=== PATIENT | female | born 1945 | race Caucasian/White ===

== ENCOUNTER 2017-10-15 07:28 | Inpatient (IN) | payer MEDICARE, OTHER ==
[2017-10-12 11:54] LABS: BASOPHILS # (AUTO) 0.1 (0.0-0.1); BASOPHILS % 0.6 % (0.0-1.0); EOSINOPHILS # (AUTO) 0.1 (0.0-0.4); EOSINOPHILS % 1.6 % (0.0-6.0); HEMATOCRIT 38.2 % (34.2-44.1); HEMOGLOBIN 12.8 g/dL (12.0-16.0); LYMPHOCYTES # (AUTO) 2.8 (1.0-3.2); LYMPHOCYTES % 32.6 % (18.0-39.1); MEAN CORPUSCULAR HEMOGLOBIN 31.2 pg (28-32); MEAN CORPUSCULAR HGB CONC 33.5 g/dL (31-35); MEAN CORPUSCULAR VOLUME 93.2 fL (81-99); MONOCYTES # (AUTO) 0.7 (0.2-0.8); MONOCYTES % 7.9 % (4.4-11.3); NEUTROPHILS % 57.1 % (38.7-80.0); PLATELET COUNT 432 x10e3/uL (140-360); RED CELL DISTRIBUTION WIDTH 12.2 % (11.7-14.4)
[2017-10-12 12:22] LABS: BLOOD UREA NITROGEN 18 mg/dL (7-26); BUN/CREATININE RATIO 24 (6-25); CALCIUM 10.2 mg/dL (8.4-10.2); CARBON DIOXIDE 30 mmol/L (22-29); CHLORIDE 102 mmol/L (98-107); CREATININE, SERUM 0.74 mg/dL (0.57-1.11); EST GLOMERULAR FILTRATION RATE > 60 ML/MIN (60-); GLUCOSE 101 mg/dL (74-118); SODIUM 140 mmol/L (136-145)
--- NOTE | 2017-10-12 12:36 | Diagnostic Imaging Report ---
PROCEDURE: X-RAY CHEST, TWO VIEWS COMPARISON: None. INDICATIONS: PRE-OPERATIVE CHEST X-RAY FOR LT. KNEE SURGERY. FINDINGS: LUNGS: There is flattening of the diaphragms. No evidence of mass or infiltrate. Vasculature is normal PLEURA: No effusions or pneumothorax. HEART \T\ MEDIASTINUM: The heart is within normal size-limits. Aorta is ectatic. BONES \T\ SOFT TISSUES: Diffusely demineralized. Lymph node dissection clips are present in the right axilla. CONCLUSION: Mild pulmonary hyperinflation suggestive of small airways disease. No acute thoracic abnormality. Dictated by: Reid Peoples M.D. on 10/12/2017 at 12:39 Electronically approved by: Reid Peoples M.D. on 10/12/2017 at 12:39
[~2017-10-15] VITALS: Ht 165.1 cm; Wt 95.3 kg
[~2017-10-15 07:28] MED LIST: ASPIRIN81 MG; BACITRACIN 50,000 UNIT VIAL ONE; DIOVAN HCT 80-1 EACH; FISH OIL 1,0001 EAC2; GABAPENTIN300 MG PO; LIPITOR20 MG; METOPROLOL TART50 MG PO; MUPIROCIN 2% OINT 22 GM TUBE ONE; ROPIVACAINE 246.25 MG, EPINEPHRINE HCL 1:1000 0.5 MG, CLONIDINE HCL 0.08 MG, KETOROLAC ... IV ONE; TRANEXAMIC ACID 1,000 MG/10 ML ML ONE
--- OUTSIDE RECORDS SUMMARY | 2017-10-15 07:31 | XMS REPORT ---
Author Author [facility] Address Unknown Phone Unavailable Care Team Providers Care Funeral Planning Counselor Name Role Phone OLGA ROJAS Unavailable Unavailable Problems This patient has no known problems. Allergies, Adverse Reactions, Alerts This patient has no known allergies or adverse reactions. Medications This patient has no known medications. Results Test Description Test Time Test Comments Text Results Atomic Results Result Comments CHEST 2 VIEWS [place] [address] Patient Name: YINA RINALDI MR #: [id number] : 1945 Age/Sex: 72/F Req # : [id number] Adm Physician: Ordered by: ASHLEY MONTERO MD Report #: [id number] Location: OR Room/Bed: Procedure: DX/CHEST 2 VIEWS Exam Date: 10/12/17 Exam Time: 1212 REPORT STATUS: Signed PROCEDURE: X-RAY CHEST, TWO VIEWS COMPARISON: None. INDICATIONS: PRE-OPERATIVE CHEST X-RAY FOR LT. KNEE SURGERY. FINDINGS: LUNGS: There is flattening of the diaphragms. No evidence of mass or infiltrate. Vasculature is normal PLEURA: No effusions or pneumothorax. HEART T MEDIASTINUM: The heart is within normal size-limits. Aorta is ectatic. BONES T SOFT TISSUES: Diffusely demineralized. Lymph node dissection clips are present in the right axilla. CONCLUSION: Mild pulmonary hyperinflation suggestive of small airways disease. No acute thoracic abnormality. Dictated by : Noe Peoples M.D. on 10/12/2017 at 12:39 Electronically approved by : Noe Peoples M.D. on 10/12/2017 at 12:39 Dictated By: NOE PEOPLES MD [id number] COPY TO: ASHLEY MONTERO MD
[2017-10-15] MEDS ORDERED: CELECOXIB 200 MG CAP ONE (07:35)
[2017-10-15] MEDS ORDERED: GABAPENTIN 300 MG CAP ONE (07:35)
[2017-10-15] MEDS ORDERED: DEXAMETHASONE SOD PHOS 10 MG/1 ML VIAL ONE (07:35)
[2017-10-15] MEDS ORDERED: CEFAZOLIN SOD 2 GM/D5W 50ML 50 ML IV ONE (07:35)
[2017-10-15] MEDS ORDERED: ZOLPIDEM TARTRATE 5 MG TAB PO PRN (10:00)
[2017-10-15] MEDS ORDERED: KETOROLAC TROMETHAMINE 30 MG/ML VIAL IV PRN (10:00)
[2017-10-15] MEDS ORDERED: ACETAMINOPHEN 650 MG SUPP PR PRN (10:00)
[2017-10-15] MEDS ORDERED: ONDANSETRON HCL INJ 2 MG/ML VIAL IV PRN (10:00)
[2017-10-15] MEDS ORDERED: DOCUSATE SODIUM 100 MG CAP PO PRN (10:00)
[2017-10-15] MEDS ORDERED: PROMETHAZINE HCL (IM) 25 MG/ML VIAL INJ PRN (10:00)
[2017-10-15] MEDS ORDERED: HYDROCODONE/APAP 5MG-325MG TAB PO PRN (10:00)
[2017-10-15] MEDS ORDERED: DIPHENHYDRAMINE HCL INJ 50 MG/ML VIAL IM/IV PRN (10:00)
[2017-10-15] MEDS ORDERED: KETOROLAC TROMETHAMINE 30 MG/ML VIAL ONE ×2 (10:21→18:12)
--- NOTE | 2017-10-15 11:03 | Diagnostic Imaging Report ---
PROCEDURE:KNEE LEFT 1-2 VIEWS TECHNIQUE:Portable AP and crosstable lateral views left knee INDICATION:Postoperative evaluation COMPARISON:None. FINDINGS: See conclusion. CONCLUSION: 1. Total left knee arthroplasty intact and in anatomic alignment. 2. Expected regional postsurgical sequela including soft tissue fluid, gas and overlying soft tissue surgical jaylene with soft tissue swelling. 3. No acute abnormality. Dictated by: Sher Ba M.D. on 10/15/2017 at 11:06 Electronically approved by: Sher Ba M.D. on 10/15/2017 at 11:06
[2017-10-15] MEDS: ACETAMINOPHEN 1000 MG/100 ML IV SCH ×2 (11:54→17:16)
[2017-10-15] MEDS: SODIUM CHLORIDE 0.9% 1000ML 1,000 ML IV SCH ×2 (11:54→19:49)
[2017-10-15 12:00] VITALS: BP 102/52
[2017-10-15] MEDS ORDERED: CEFAZOLIN SOD 1 GM/NS 50ML 50 ML IV SCH (14:00)
[2017-10-15] MEDS: CEFAZOLIN SOD 1 GM VIAL IV SCH ×2 (14:43→21:05)
--- NOTE | 2017-10-15 15:28 | Operative Report ---
DATE OF PROCEDURE: October 15, 2017 AEROPHYSICS ENGINEER: Anatoly Ramirez PA-C The patient was brought to the operating room for induction of anesthesia. Throughout this case, my PA's assistance was necessary for retraction of soft tissue and positioning of the extremity. This allows for efficient and technically successful execution of the operation and is considered medically necessary. PREOPERATIVE DIAGNOSIS: Osteoarthritis left knee. POSTOPERATIVE DIAGNOSIS: Osteoarthritis left knee. PROCEDURE: Left total knee arthroplasty. INDICATIONS: The patient is a 72-year-old medically frail female who has advanced arthritis of her left knee. She has failed conservative management and would like to proceed with a left total knee replacement. The risks and benefits have been explained. She states she understands and wishes to proceed. DESCRIPTION OF PROCEDURE: The patient was brought to the operating room and placed under general anesthetic. She had declined a regional block but received prophylactic antibiotics and tranexamic acid. The left lower extremity was prepped and draped in a sterile manner. A preoperative time out was performed. The extremity was exsanguinated, and a proximal tourniquet was inflated to 300 mmHg. An anterior approach with a medial parapatellar arthrotomy was performed. Minimal soft-tissue releases were necessary due to the ligamentous laxity and diminished muscle tone of her lower extremity. The knee was brought up into flexion with the patella everted. Meniscal remnants and marginal osteophytes were removed. The cruciate ligaments were sacrificed. A [employer]hu II posterior stabilized knee system was used throughout the case. An extramedullary cutting guide was used to resect the proximal tibia. The cut was referenced off of the least affected medial compartment. The tibial baseplate was a size number 5. The central fin punch was impacted, and attention was directed towards the distal femur. An intramedullary cutting guide was used to resect the distal femur in 6 degrees of valgus and rotation referencing off of a combination of landmarks including Lluvia's line, the epicondylar axis and the posterior condyles. Some posterolateral hypoplasia was taken into account. The femoral component was also a number 5. The anterior and posterior cuts were made. Minimal notching of the anterior femoral cortex was encountered. This was gently contoured with a rongeur. The notch cut was made. Trial reductions were performed. I felt an 11 mm posterior stabilized tibial insert provided optimal soft-tissue balancing in full extension and flexion. The patella was resurfaced with a 29 mm x 9 mm patellar button. The thickness was checked before and after and was right at 23 mm. Patellar tracking was noted to be concentric. The trial implants were then all removed. A 100 mL premixed pericapsular injection was placed into the surrounding soft tissue. The knee was thoroughly irrigated with a shower-tip pulsatile lavage. The components were cemented into place using a single mix of Palacos cement pre-loaded with antibiotics. Care was taken to remove extravasated cement. The wound was further irrigated while the cement cured. The arthrotomy was then closed with interrupted number 1 Ethibond. The knee was put through flexion and extension to ensure a secure closure. The skin was closed with subcuticular Vicryl and jaylene. The skin was very frail and thin. A sterile bandage was applied. She was extubated and transported to the recovery room in stable condition. The blood loss was minimal, and all needle and sponge counts were correct. Job#: [id number] PALLAVI
[2017-10-15 16:26] VITALS: BP 91/52
[2017-10-15] MEDS: CELECOXIB 100 MG CAP PO SCH (16:52)
[2017-10-15] MEDS ORDERED: ENOXAPARIN SOD INJ 40 MG/0.4 ML SYR SC SCH (17:00)
[2017-10-15] MEDS ORDERED: LIDOCAINE HCL 2% LOCAL INJ 5 ML SDV VIAL INJ ONE (18:12)
[2017-10-15] MEDS ORDERED: PHENYLEPHRINE HCL 1% 10 MG/ML VIAL ONE (18:12)
[2017-10-15] MEDS ORDERED: SEVOFLURANE INHAL SOLN 250 ML PEN BTL ONE (18:12)
[2017-10-15] MEDS ORDERED: PROPOFOL IV EMULSION 10 MG/ML 20 ML VIAL ONE (18:12)
[2017-10-15] MEDS ORDERED: ONDANSETRON HCL INJ 2 MG/ML VIAL ONE (18:12)
[2017-10-15] MEDS ORDERED: EPHEDRINE SULFATE INJ 50 MG/10 ML SYR ONE (18:12)
[2017-10-15] MEDS ORDERED: DEXAMETHASONE SOD PHOS INJ 4 MG/ML VIAL ONE (18:12)
[2017-10-15] MEDS ORDERED: FENTANYL CITRATE/PF 100MCG/2 ML INJ ONE (18:43)
[2017-10-15] MEDS ORDERED: MIDAZOLAM HCL 2 MG/2 ML VIAL ONE (18:43)
[2017-10-15] MEDS: HYDROCODONE/APAP 7.5MG-325MG 1 EA TAB PO PRN (19:25)
[2017-10-15 20:00] VITALS: BP 92/54
[2017-10-15 20:05] VITALS: BP 92/54
[2017-10-15] MEDS ORDERED: ATORVASTATIN 40 MG TAB PO SCH (21:00)
[2017-10-15] MEDS ORDERED: ATORVASTATIN 20 MG TAB PO SCH (21:00)
[2017-10-16] VITALS: BP 92/55
[2017-10-16 04:00] VITALS: BP 98/48
[2017-10-16] MEDS: HYDROCODONE/APAP 7.5MG-325MG 1 EA TAB PO PRN ×2 (04:54→09:19)
[2017-10-16] MEDS: SODIUM CHLORIDE 0.9% 1000ML 1,000 ML IV SCH (05:49)
[2017-10-16] MEDS: ACETAMINOPHEN 1000 MG/100 ML IV SCH ×2 (06:30)
[2017-10-16] MEDS: CEFAZOLIN SOD 1 GM VIAL IV SCH (06:52)
[2017-10-16 07:19] LABS: HEMATOCRIT 31.4 % (34.2-44.1); HEMOGLOBIN 10.4 g/dL (12.0-16.0)
[2017-10-16 08:00] VITALS: BP 97/52
[2017-10-16] MEDS: CELECOXIB 100 MG CAP PO SCH (08:49)
[2017-10-16] MEDS ORDERED: GABAPENTIN 300 MG CAP PO SCH (09:00)
[2017-10-16] MEDS ORDERED: ACETAMINOPHEN 1000 MG/100 ML IV PRN (10:00)
[2017-10-16 12:00] VITALS: BP 99/51
[2017-10-16] MEDS ORDERED: LOVENOX40 MG/0.4 SC (13:31)
== END 2017-10-16 16:34 | disposition home health service (06) | DRG 470 ==
LOC: OR 07:28 → MED/SURG 10:18 → EDSEX 11:00
PROVIDERS: ADMIT Specialist; ATTEND Specialist
PROC: 0SRD0J9 Replacement of Left Knee Joint with Synthetic Substitute, Cemented, Open Approach (ICD-10-PCS; principal; 2017-10-15 10:00)
DX: M17.0 Bilateral primary osteoarthritis of knee (principal); I10 Essential (primary) hypertension; E78.00 Pure hypercholesterolemia, unspecified; D64.9 Anemia, unspecified; I95.9 Hypotension, unspecified; G89.18 Other acute postprocedural pain
CPT/HCPCS: 36415; 71046; 80048; 85014; 85018; 85025; 86850; 86900; 86920; 93005; J0171; J0690; J1100; J1650; J1885; J2001; J2250; J2370; J2405; J2795; J7030

== ENCOUNTER → 2017-11-20 | Day surgery (SDC) | payer MEDICARE, OTHER ==
[~2017-11-20] MED LIST changes: +ASPIR 8181 MG PO; -BACITRACIN 50,000 UNIT VIAL ONE; +DIOVAN HCT 1601 EACH PO; +FENTANYL CITRATE/PF 100MCG/2 ML INJ ONE; +LOVENOX40 MG/0.4 SC; +MIDAZOLAM HCL 2 MG/2 ML VIAL ONE; -MUPIROCIN 2% OINT 22 GM TUBE ONE; +ONDANSETRON HCL INJ 2 MG/ML VIAL ONE; +PROPOFOL IV EMULSION 10 MG/ML 20 ML VIAL ONE; -ROPIVACAINE 246.25 MG, EPINEPHRINE HCL 1:1000 0.5 MG, CLONIDINE HCL 0.08 MG, KETOROLAC ... IV ONE; -TRANEXAMIC ACID 1,000 MG/10 ML ML ONE
--- NOTE | 2017-11-20 13:03 | Operative Report ---
DATE OF PROCEDURE: November 20, 2017 ___ASSISTANT: Anatoly Ramirez PA-C ___The patient was brought to the operating room for induction of anesthesia. Throughout this case, my PA's assistance was necessary for retraction of soft tissue and positioning of the extremity. This allows for efficient and technically successful execution of the operation and is considered medically necessary. PREOPERATIVE DIAGNOSIS: Presence left total knee replacement with limited motion. POSTOPERATIVE DIAGNOSIS: Presence left total knee replacement with limited motion. PROCEDURE: Manipulation under anesthesia left knee. INDICATIONS: The patient is a 72-year-old lady who is approximately 1 month status post a left total knee replacement. She is having trouble with physical therapy and making poor progress. We have discussed the findings and options and have recommended a manipulation under anesthesia. The risks and benefits were explained. She stated she understood and wished to proceed. DESCRIPTION OF PROCEDURE: The patient was brought to the operating room. She was given a MAC anesthetic. A preoperative time out was performed. Her left knee was manipulated under anesthesia. Her initial passive motion was from 0 degrees to 70 degrees. We manipulated her from 0 degrees to 125 degrees. She was transported to the recovery room in stable condition. There was no blood loss or needle or sponge counts. Job#: [id number] EV
== END | disposition home or self-care (01) ==
LOC: OR 09:06
PROVIDERS: ATTEND Specialist
DX: M25.662 Stiffness of left knee, not elsewhere classified (principal); Z96.652 Presence of left artificial knee joint; G47.33 Obstructive sleep apnea (adult) (pediatric); I48.91 Unspecified atrial fibrillation; E78.5 Hyperlipidemia, unspecified; I10 Essential (primary) hypertension; Z79.82 Long term (current) use of aspirin; Z88.2 Allergy status to sulfonamides; Z68.34 Body mass index [BMI] 34.0-34.9, adult; Z86.73 Personal history of transient ischemic attack (TIA), and cerebral infarction without residual deficits
CPT/HCPCS: 27570; J2250; J2405